=== PATIENT | male | born 1955 | race Caucasian/White ===

== ENCOUNTER → 2016-06-28 | Outpatient (REF) ==
[2016-06-28 20:34] LABS: PSA-TOTAL 0.5 ng/mL (0-4)
[2016-06-28 20:41] LABS: THYROID STIMULATING HORMONE 1.37 uIU/mL (0.465-4.680)
== END ==
LOC: ZLAB.WCH 19:52
PROVIDERS: Internal Medicine
DX: Z01.89 Encounter for other specified special examinations (principal)
CPT/HCPCS: G0103

== ENCOUNTER → 2018-06-08 | Outpatient (REF) ==
[~2018-06-08] MED LIST: ALAVERT10 M1 PO; FISH OIL 1000MG1 CAP PO; GLUCOSAMINE & C1 CA2 PO; IRON 27 MG PO; PREVACID 30MG30 M1 PO; VITAMIN C500 MG PO; ZOCOR 40MG40 MG PO
== END ==
LOC: ZLAB.WCH 17:40
DX: Z01.89 Encounter for other specified special examinations (principal)

== ENCOUNTER 2018-06-09 08:35 | Day surgery (SDC) | payer BC ==
[~2018-06-09] VITALS: Ht 188 cm; Wt 90.4 kg
[2018-06-09] MEDS ORDERED: ZOCOR 40MG40 MG PO (09:03)
[2018-06-09] MEDS ORDERED: ALAVERT10 M1 PO (09:04)
[2018-06-09] MEDS ORDERED: PREVACID 30MG30 M1 PO (09:04)
[2018-06-09] MEDS ORDERED: VITAMIN C500 MG PO (09:04)
[2018-06-09] MEDS ORDERED: FISH OIL 1000MG1 CAP PO (09:05)
[2018-06-09] MEDS ORDERED: IRON 27 MG PO (09:05)
[2018-06-09] MEDS ORDERED: GLUCOSAMINE & C1 CA2 PO (09:06)
[2018-06-09 09:24] VITALS: BP 140/100; PULSE 78; TEMP 97.6
--- NOTE | 2018-06-09 09:36 | NUR ---
TO RM 3 CALL LIGHT IN REACH
[2018-06-09 11:20] VITALS: BP 120/85; PULSE 72; TEMP 97.6
--- NOTE | 2018-06-09 11:20 | NUR ---
Patient returned back to [facility]. Alert and oriented. Ambulated to chair without difficulty. Vital signs obtained WNL. Denies any pain or nasuea. Requesting juice, apple sauce and muffin. Tolerated sips of juice, no difficulty swallowing. at bedside. Call singer within reach, will continue to monitor.
[2018-06-09 11:35] VITALS: BP 118/87; PULSE 76
--- NOTE | 2018-06-09 11:35 | NUR ---
Vital signs obtained WNL. States he is feeling well. Tolerating food and drink well. Will continue to monitor.
[2018-06-09 11:50] VITALS: BP 114/82; PULSE 80
--- NOTE | 2018-06-09 11:50 | NUR ---
Vital signs stable. Patient states that he is ready to go home. Discharge instructions reviewed with patient and , verbalized understanding.
--- NOTE | 2018-06-09 12:09 | NUR ---
Patient wheeled down to lobby. Patient to be driven home by Yudelka
== END 2018-06-09 12:09 | disposition home or self-care (01) ==
LOC: SDCO 08:35
DX: K64.0 First degree hemorrhoids (principal); K31.7 Polyp of stomach and duodenum; K21.9 Gastro-esophageal reflux disease without esophagitis; K44.9 Diaphragmatic hernia without obstruction or gangrene; E78.5 Hyperlipidemia, unspecified; Z79.899 Other long term (current) drug therapy; Z79.82 Long term (current) use of aspirin
CPT/HCPCS: OP; J2250; J3010; J7030

== ENCOUNTER → 2018-06-18 | Outpatient (CLI) | payer BC | LOC: COL.RAD 07:30 | DX: Z01.812 Encounter for preprocedural laboratory examination (principal); M12.88 Other specific arthropathies, not elsewhere classified, other specified site; M43.17 Spondylolisthesis, lumbosacral region; N40.0 Benign prostatic hyperplasia without lower urinary tract symptoms; N49.0 Inflammatory disorders of seminal vesicle; R93.3 Abnormal findings on diagnostic imaging of other parts of digestive tract | CPT/HCPCS: Q9967 ==

== ENCOUNTER 2018-06-24 09:03 | Day surgery (SDC) | payer BC ==
[2018-06-24] VITALS (9 sets, daily range): BP systolic 123–150; BP diastolic 77–93; PULSE 65–77; TEMP 97.6–98
[~2018-06-24] VITALS: Ht 188 cm; Wt 94.6 kg
--- NOTE | 2018-06-24 14:00 | NUR ---
Patient returns to room 2 per cart and arouses to verbal stimuli. Bandaids x3 across the abdomen. Scrotal support in place. IV fluids infusing. Site is free of redness. Patient is on oxygen at 2L per nasal cannula. Spouse in room and allowed to rest.
--- NOTE | 2018-06-24 14:15 | NUR ---
Sats 96% on 2L per nasal cannula. Continues to rest when not disturbed.
--- NOTE | 2018-06-24 14:30 | NUR ---
Scripts for Oxycodone and Extra strength tylenol given to spouse to be filled prior to discharge.
--- NOTE | 2018-06-24 14:45 | NUR ---
Taking ice chips and rests with eyes closed when not disturbed. IV fluids infusing.
[2018-06-24] MEDS ORDERED: ROXICODONE 55 MG/TAB PO (14:53)
[2018-06-24] MEDS ORDERED: TYLENOL 500MG500 MG PO (14:54)
--- NOTE | 2018-06-24 15:00 | NUR ---
Sats 95% on 2L and continues to rest when not disturbed.
--- NOTE | 2018-06-24 15:30 | NUR ---
Becoming more awake and on room air. Drinking grape juice and eating muffin. Sitting up on cart.
--- NOTE | 2018-06-24 16:00 | NUR ---
Tolerated juice and muffin. Continues to sip on water.
--- NOTE | 2018-06-24 16:16 | NUR ---
Ambulatory across the hallway to urinate. Unable to urinate and returns to room. Given Sprite and water to sip on. States that he does not have the urge to urinate. Spouse in room.
--- NOTE | 2018-06-24 17:05 | NUR ---
Ambulatory to the bathroom and voids. Complains of slight dizziness with movement. Instructed to take deep breaths and to look straight ahead when walking. Voids and returns to room. IV discontinued and given dismissal instructions. Spouse in room. All questions answered and voices understanding of these. Spouse assists patient with dressing.
--- NOTE | 2018-06-24 17:15 | NUR ---
Dismissal instructions signed and assisted into wheelchair.
--- NOTE | 2018-06-24 17:25 | NUR ---
Patient taken to the front door per wheelchair accompanied by this RN and assisted into private vehicle driven by spouse with instructions in hand.
== END 2018-06-24 17:25 | disposition home or self-care (01) ==
LOC: SDCO 09:03
DX: K40.90 Unilateral inguinal hernia, without obstruction or gangrene, not specified as recurrent (principal); D50.9 Iron deficiency anemia, unspecified; E78.5 Hyperlipidemia, unspecified; K21.9 Gastro-esophageal reflux disease without esophagitis; J30.89 Other allergic rhinitis; Z80.42 Family history of malignant neoplasm of prostate; Z83.3 Family history of diabetes mellitus; Z82.49 Family history of ischemic heart disease and other diseases of the circulatory system; Z82.5 Family history of asthma and other chronic lower respiratory diseases; Z80.49 Family history of malignant neoplasm of other genital organs; J30.2 Other seasonal allergic rhinitis; M19.041 Primary osteoarthritis, right hand; M19.042 Primary osteoarthritis, left hand
CPT/HCPCS: C1781; J0690; J1885; J2250; J2405; J2704; J3010; J7120